=== PATIENT | male | born 1950 | race Caucasian/White ===

== ENCOUNTER 2016-12-02 00:30 | Emergency (ER) | payer MEDICARE ==
[2016-12-02] MEDS ORDERED: CLINDAMYCIN 600MG/50ML PREMIX 600 MG/50 ML BAG IVPB ONE (00:46)
--- NOTE | 2016-12-02 00:52 | Emergency Department Record ---
History of Present Illness - General Chief complaint: Extremity Problem Stated complaint: RIGHT ARM/HAND SWOLLEN Time Seen by Provider: 12/02/16 00:36 Source: Patient, Family Mode of Arrival: Ambulatory Limitations: No limitations - History of Present Illness Initial comments: 66 yo male presents with right arm redness, swelling, and pain. He initially injured the right upper arm on Sunday. He his his elbow against a metal post. On Sunday he developed warmth and redness. He states he was seen at the [facility] where XRays and CT scan were performed. He started oral antibiotics at that time. Over the last day he has developed increased warmth, redness, pain and swelling of the entire RUE. No fever. PCP is Dr Fay through the [facility]. MD Complaint: Extremity pain, Extremity swelling, Joint pain, Joint swelling -: Days(s) (3) Location: Right -: Yes Arthralgia, Yes Myalgia Radiation: Proximal, Distal Quality: Aching Consistency: Constant Improves with: Nothing Worsens with: Weight bearing Associated Symptoms: Denies other symptoms - Related Data Home Medications Medication Instructions Recorded Confirmed Last Taken Hydrochlorothiazide [Hctz 25Mg] 25 mg PO DAILY 12/04/14 12/02/16 Unknown Hydrocodone/Acetaminophen [[place] 1 tab PO Q8H PRN 12/04/14 12/02/16 Unknown 5mg/325mg] Lisinopril [Zestril] 5 mg PO DAILY 12/04/14 12/02/16 Unknown Meloxicam [Mobic] 15 mg PO DAILY 12/04/14 12/02/16 Unknown Omeprazole [Prilosec] 20 mg PO DAILY 12/04/14 12/02/16 Unknown Oxybutynin Chloride [Oxybutynin 5 mg PO BID 12/04/14 12/02/16 Unknown Chloride ER] Simvastatin [Zocor] 20 mg PO DAILY 12/04/14 12/02/16 Unknown Tamsulosin HCl [Flomax] 0.4 mg PO DAILY 12/04/14 12/02/16 Unknown Clindamycin HCl [Cleocin HCl] 300 mg PO Q6H 12/02/16 12/02/16 Unknown Escitalopram (Uknown Dose) 12/02/16 Unknown Allergies Allergy/AdvReac Type Severity Reaction Status Date / Time NO KNOWN DRUG ALLERGY Allergy PT UNSURE Uncoded 05/24/14 11:07 OF REACTION Review of Systems Constitutional: Denies: Chills, Fever, Malaise, Weakness Eyes: Denies: Eye discharge ENT: Denies: Congestion, Throat pain Respiratory: Denies: Cough, Dyspnea, Hemoptysis, Stridor, Wheezes Cardiovascular: Denies: Chest pain, Syncope Endocrine: Denies: Fatigue, Polydipsia, Polyuria Gastrointestinal: Denies: Abdominal pain, Diarrhea, Nausea, Vomiting Genitourinary: Denies: Dysuria, Frequency, Hematuria Musculoskeletal: Reports: As per HPI, Arthralgia, Joint swelling Skin: Reports: As per HPI, Change in color, Rash Neurological: Denies: Headache, Numbness, Vertigo, Weakness Psychiatric: Denies: Anxiety Hematological/Lymphatic: Denies: Blood Clots, Easy bleeding, Easy bruising, Swollen glands Past Medical History - SOCIAL HISTORY Smoking Status: Never smoker - RESPIRATORY Hx Respiratory Disorders: No - CARDIOVASCULAR Hx Cardio Disorders: Yes Hx Hypertension: Yes - NEURO Hx Neuro Disorders: No - GI Hx GI Disorders: Yes Hx Reflux: Yes - Hx Genitourinary Disorders: Yes Hx Prostate Problems: Yes - ENDOCRINE Hx Endocrine Disorders: No - MUSCULOSKELETAL Hx Musculoskeletal Disorders: No - PSYCH Hx Psych Problems: No - HEMATOLOGY/ONCOLOGY Hx Hematology/Oncology Disorders: No Physical Exam - General General Appearance: Alert, Oriented x3, Cooperative, No acute distress - Head Head exam: Atraumatic - Eye Eye exam: Normal appearance. negative: Conjunctival injection, Periorbital swelling - ENT ENT exam: Normal exam Ear exam: Normal external inspection Nasal Exam: Normal inspection Mouth exam: Normal external inspection - Neck Neck exam: Normal inspection, Full ROM. negative: Tenderness - Respiratory Respiratory exam: Normal lung sounds bilaterally. negative: Respiratory distress - Cardiovascular Cardiovascular Exam: Regular rate, Normal rhythm, Normal heart sounds Peripheral Pulses: 2+: Radial (R) - GI/Abdominal GI/Abdominal exam: Soft. negative: Tenderness - Rectal Rectal exam: Deferred - exam: Deferred - Extremities Extremities exam: Joint swelling, Normal capillary refill, Tenderness. negative : Normal inspection Image of Full Body: 1 - diffuse swelling of the RUE with some warmth, tender at the posterior elbow , swelling at the bursa, tender, he is swollen from the upper arm the the hand. - Neurological Neurological exam: Alert, Normal gait, Oriented X3, Reflexes normal - Psychiatric Psychiatric exam: Normal affect, Normal mood - Skin Skin exam: Dry, Erythema, Intact, Normal color, Warm. negative: Cyanosis, Diaphoretic, Mottled Course Vital Signs 12/02/16 00:41 Temperature 98.3 F Pulse Rate [ 83 Pulse Ox Probe] Respiratory 18 Rate Blood Pressure 121/67 [Left Arm] Pulse Ox 94 L - Reevaluation(s) Reevaluation #1: The patient was seen with RUE warmth, erythema, swelling. Likely started as a traumatic bursitis now with cellulitis 12/02/16 00:52 Reevaluation #2: The XR was reviewed Degenerative changes with spurring noted. No acute fracture. 12/02/16 01:31 Reevaluation #3: The labs were reviewed WBC count is 12.8 with a CRP of 21. 12/02/16 01:32 12/02/16 01:38 The patient is failed outpatient treatment for celluitis with possible septic olecranon bursitis. He is requesting admission be at the [facility]. He was made aware he will be charged ambulance transfer fees. Additionally, [facility] does not have orthopedics electronics test engineer for consultation of an infected olecranon bursa. 12/02/16 01:45 12/02/16 02:14 The requested clinical information was sent to the [facility] as requested by the intake service. - Consultations Consultation #1: 01:40 The [facility] Transfer line was contacted and request made for transfer. 04:10 The [facility] and [facility] continue to review the information without acceptance by either facility at this time. The patient was updated on the circumstances. [facility] request information again be faxed to them. 04:53 The [facility] intake rep reports the patient was accepted to the [facility] under Dr Mcneal Medical Decision Making - Lab Data Result diagrams: 12/02/16 00:54 12/02/16 00:54 Disposition Disposition: Transfer Clinical Impression: Cellulitis, Bursitis Transfer To: [facility] Reason For Transfer: Patient preference, Accepting Physician: Kathya Time Discussed w/Accepting Physician: 04:51 Condition: (2) Stable Forms: Patient Portal Access Time of Disposition: 04:51 Quality - Quality Measures Quality Measures: N/A - Blood Pressure Screening View Details: Yes Blood Pressure Classification: Pre-Hypertensive BP Reading Systolic Measurement: 120 Diastolic Measurement: 70 Screening for High Blood Pressure: < Pre-Hypertensive BP, F/U Documented > [ G8950] Pre-Hypertensive Follow-up Interventions: Referral to alternative/primary care provider.
[2016-12-02] MEDS ORDERED: MORPHINE SULFATE 5 MG/ML PFS IVP ONE (00:55)
[2016-12-02 01:00] LABS: BASO % 0.3 % (0-6); EOS % 1.3 % (0-6); GRAN % 77.5 % (47-80); HEMATOCRIT 38.7 % (42.0-52.0); HEMOGLOBIN 13.5 gm/dl (14.0-18.0); LYMPH % 12.6 % (16-45); MEAN CELL VOLUME 93.3 fl (81-97); MEAN CORPUSCULAR HEMOGLOBIN 32.5 pg (27-33); MEAN CORPUSCULAR HGB CONC 34.9 g/dl (32-36); MEAN PLATELET VOLUME 9.9 fl (7.4-10.4); MONO % 8.3 % (0-9); PLATELET COUNT 166 K/uL (130-400); RED BLOOD COUNT 4.15 M/uL (4.40-5.70); RED CELL DISTRIBUTION WIDTH 12.6 % (11.5-14.5); WHITE BLOOD COUNT W/O DIFF 12.8 K/uL (4.2-12.2)
[2016-12-02 01:20] LABS: ANION GAP 11.6 (7-16); BLOOD UREA NITROGEN 24 mg/dL (9-20); CARBON DIOXIDE 25.4 mmol/L (22-30); EST GLOMERULAR FILTRATION RATE > 60 ml/min; GLUCOSE,RANDOM 133 mg/dL (70-110)
[2016-12-02 01:30] LABS: C-REACTIVE PROTEIN 21.7 mg/dL (0.0-0.9)
[2016-12-02] MEDS ORDERED: VANCOMYCIN HCL 1,500 MG in 0.9 % SODIUM CHLORIDE 500ML 500 ML IVPB ONE (01:46)
[2016-12-02 02:31] LABS: ERYTHROCYTE SEDIMENTATION RATE 42 mm/hr (0-20)
--- NOTE | 2016-12-04 09:20 | RADIOLOGY REPORT ---
EXAM: RIGHT ELBOW, FOUR VIEWS HISTORY: RIGHT ELBOW INJURY AND PAIN. TECHNIQUE: Four views of the right elbow were obtained. Comparison: None. FINDINGS: No acute fracture or dislocation of the right elbow. Fairly extensive soft tissue swelling superficial to the olecranon process. Moderate enthesophyte formation at the triceps insertion. Hypertrophic change at the medial and lateral epicondyles. Mild to moderate osteoarthritic change of the right elbow. IMPRESSION: 1. NEGATIVE FOR ACUTE FRACTURE OR THE RIGHT ELBOW. 2. MILD TO MODERATE OSTEOARTHRITIC CHANGE AT THE RIGHT ELBOW. 3. TRICEPS ENTHESOPATHY. 4. SOFT TISSUE SWELLING SUPERFICIAL TO THE OLECRANON PROCESS. JOB NUMBER: [id number] MTDD
== END 2016-12-02 05:15 ==
LOC: ER 00:30
DX: L03.113 Cellulitis of right upper limb (principal); M70.21 Olecranon bursitis, right elbow; I10 Essential (primary) hypertension
CPT/HCPCS: 99285 ×2; 96374; 96375; 85025; 85651; 86140; 80048; 73080; J3370; J2270; J7040

== ENCOUNTER 2017-08-02 16:18 | Emergency (ER) | payer MEDICARE ==
--- NOTE | 2017-08-02 16:41 | Emergency Department Record ---
History of Present Illness - General Chief complaint: Weakness Stated complaint: WEAKNESS Time Seen by Provider: 08/02/17 16:31 Source: Patient Mode of Arrival: EMS Limitations: No limitations - History of Present Illness Initial comments: The patient is here due to developing L arm weakness about an hour ago. He was working at [employer] and bent over because of some back stiffness and then he noticed his L arm was weak and felt heavy. He also may have had some very slight slurred speech and was walking leaning to the L. His symptoms have now very much improved and now only has mild L forearm tingling. He feels 90% improved. The patient does have a hx of chronic neck issues but no hx of CVA. MD Complaint: Focal weakness Onset/Timin -: Hour(s) Location: LUE Severity: Mild Improves with: None Worsens with: None Associated Symptoms: Denies other symptoms - Ronel Coma Scale Eye Response: (4) Open spontaneously Motor Response: (6) Obeys commands Verbal Response: (5) Oriented Ronel Total: 15 - Symptoms of Stroke Symptoms of stroke: Dizziness, Unsteady When Walking - Related Data Home Medications Medication Instructions Recorded Confirmed Last Taken Bupropion HCl [Wellbutrin Sr] 150 mg PO BID 08/02/17 08/02/17 08/02/17 Trazodone HCl 50 mg PO QHS 08/02/17 08/02/17 Unknown Allergies Allergy/AdvReac Type Severity Reaction Status Date / Time NO KNOWN DRUG ALLERGY Allergy PT UNSURE Uncoded 08/02/17 16:34 OF REACTION Travel Screening - Travel/Exposure Within Last 30 Days Have you traveled within the last 30 days?: No Review of Systems Constitutional: Denies: Chills, Fever Eyes: Denies: Eye discharge ENT: Denies: Congestion Respiratory: Denies: Cough, Dyspnea Cardiovascular: Denies: Chest pain Endocrine: Denies: Fatigue Gastrointestinal: Denies: Abdominal pain Genitourinary: Denies: Dysuria Musculoskeletal: Denies: Back pain Past Medical History - SOCIAL HISTORY Smoking Status: Never smoker - RESPIRATORY Hx Respiratory Disorders: No - CARDIOVASCULAR Hx Cardio Disorders: Yes Hx Hypertension: Yes - NEURO Hx Neuro Disorders: No - GI Hx GI Disorders: Yes Hx Reflux: Yes - Hx Genitourinary Disorders: Yes Hx Prostate Problems: Yes - ENDOCRINE Hx Endocrine Disorders: No - MUSCULOSKELETAL Hx Musculoskeletal Disorders: No - PSYCH Hx Psych Problems: No - HEMATOLOGY/ONCOLOGY Hx Hematology/Oncology Disorders: No Physical Exam - General General Appearance: Alert, Oriented x3, Cooperative, No acute distress - Head Head exam: Atraumatic, Normocephalic, Normal inspection - Eye Eye exam: Normal appearance, PERRL, EOMI - ENT Throat exam: Normal inspection. negative: Tonsillar erythema, Tonsillar exudate - Neck Neck exam: Normal inspection, Full ROM. negative: Tenderness - Respiratory Respiratory exam: Normal lung sounds bilaterally. negative: Respiratory distress - Cardiovascular Cardiovascular Exam: Regular rate, Normal rhythm, Normal heart sounds - GI/Abdominal GI/Abdominal exam: Soft, Normal bowel sounds. negative: Tenderness - Extremities Extremities exam: Normal inspection, Full ROM, Normal capillary refill. negative: Tenderness - Neurological Neurological exam: Alert, Normal gait, Oriented X3, Reflexes normal, Other (Neg Drift and [place].). negative: Abnormal gait, Altered, Motor sensory deficit ( There is very mild subjective tingling to the L dorsal forearm. Motor is 5/5 upper and lower extremities.) Course Vital Signs 08/02/17 16:28 Temperature 98.4 F Pulse Rate 72 Respiratory 18 Rate Blood Pressure 149/92 Pulse Ox 97 - Reevaluation(s) Reevaluation #1: The patient is doing very well at this time. His L arm is no longer weak but still feels mild tingling. There is no difficulty swallowing or with his speech. The patient's head CT is WNL's but since his symptoms are very much improved he is clearly not a TPA candidate. We will contact the stroke service at [facility] and transfer the patient for a full workup. 08/02/17 17:36 Reevaluation #2: The patient is resting comfortably at this time. Due to the nature of his complaints I did discuss the case with Dr. Sim from the stroke team at [facility]. She would like the patient to go to the ER for further treatment. I then did discuss the case with Dr. Escobedo and she did accept the patient in an ER to ER transfer. 08/02/17 17:51 Medical Decision Making - Data Complexity MDM Data: EKG Ordered and/or Reviewed - Lab Data Result diagrams: 08/02/17 16:05 08/02/17 16:38 - EKG Data -: EKG Interpreted by Me EKG: No Acute Changes Disposition Disposition: Transfer Clinical Impression: Left arm weakness Disposition: Acute Care Hospital Transfer Transfer To: [facility] Reason For Transfer: Neurology Accepting Physician: Gregg Time Discussed w/Accepting Physician: 17:53 Condition: (2) Stable Forms: Patient Portal Access Time of Disposition: 17:53 Quality - Quality Measures Quality Measures: N/A - Blood Pressure Screening View Details: Yes Does Patient Have Any of the Following: Active Dx of HTN Blood Pressure Classification: Hypertensive Reading Systolic Measurement: 149 Diastolic Measurement: 92 Screening for High Blood Pressure: Patient Exclusion, Hx of HTN [G9744]
[2017-08-02 16:54] LABS: BASO % 0.4 % (0-6); EOS % 4.9 % (0-6); GRAN % 47.2 % (47-80); HEMATOCRIT 44.7 % (42.0-52.0); HEMOGLOBIN 15.2 gm/dl (14.0-18.0); LYMPH % 37.8 % (16-45); MEAN CELL VOLUME 93.7 fl (81-97); MEAN CORPUSCULAR HEMOGLOBIN 31.9 pg (27-33); MEAN PLATELET VOLUME 9.8 fl (7.4-10.4); MONO % 9.7 % (0-9); PLATELET COUNT 195 K/uL (130-400); RED BLOOD COUNT 4.77 M/uL (4.40-5.70); RED CELL DISTRIBUTION WIDTH 12.9 % (11.5-14.5)
[2017-08-02 17:06] LABS: BLOOD UREA NITROGEN 23 mg/dL (8-23); CREATININE 0.9 mg/dL (0.7-1.2); EST GLOMERULAR FILTRATION RATE > 60 mL/min
[2017-08-02 17:07] LABS: TOTAL PROTEIN 7.7 g/dL (6.6-8.7)
[2017-08-02 17:09] LABS: GLUCOSE,RANDOM 88 mg/dL (74-109)
[2017-08-02 17:12] LABS: ALB/GLOB RATIO 1.3 (1.1-1.8); ALBUMIN 4.4 g/dL (4.0-5.0); ALKALINE PHOSPHATASE 68 U/L (40-129); ALT/SGPT 22 U/L (<41); AST/SGOT 31 U/L (10.0-50.0); CREATINE PHOSPHOKINASE 505 U/L (39-308)
[2017-08-02 17:15] LABS: CKMB 9.2 ng/mL (<6.73)
[2017-08-02] MEDS ORDERED: ASPIRIN 325 MG TABLET PO ONE (17:31)
--- NOTE | 2017-08-04 18:17 | CT SCAN REPORT ---
EXAM: CT SCAN HEAD WO CONTRAST HISTORY: VERTIGO. TECHNIQUE: CT brain without contrast. COMPARISON: Prior from 08/17/09. FINDINGS: The globes are intact. Mucosal thickening of the maxillary sinuses and ethmoid air cells. No displaced or depressed skull fracture. There is no intra or extraaxial hemorrhage. CT limited for the evaluation of acute infarct. There is no CT evidence for large or territorial acute infarct. There is no mass or midline shift. The ventricles are symmetric. The ruffin-white matter differentiation is preserved. IMPRESSION: MUCOSAL THICKENING OF THE MAXILLARY SINUSES AND ETHMOID AIR CELLS. REMAINDER IS UNREMARKABLE. J[facility]BER: [id number] [facility]
== END 2017-08-02 18:20 | disposition short-term general hospital (02) ==
LOC: ER 16:18
DX: R29.898 Other symptoms and signs involving the musculoskeletal system (principal); R42 Dizziness and giddiness; R20.2 Paresthesia of skin; R26.81 Unsteadiness on feet; I10 Essential (primary) hypertension
CPT/HCPCS: 70450; 80053; 82550; 82553; 84484; 85025; 93005; 93010; 99284; 99285

== ENCOUNTER 2018-07-11 15:24 | Emergency (ER) | payer MEDICARE ==
[2018-07-11] MEDS ORDERED: ACETAMINOPHEN 325 MG TAB PO ONE (15:55)
--- NOTE | 2018-07-11 16:00 | Emergency Department Record ---
History of Present Illness - General Chief complaint: Head Injury Stated complaint: FALL INJURY Time Seen by Provider: 07/11/18 15:52 Source: Patient, Family Mode of Arrival: Ambulatory Limitations: No limitations - History of Present Illness Initial comments: The patient slipped on the ice about 2 hours ago and hit the back of his head on cement. He had no LOC but was dazed and has had a worsening CLARKE since the fall. The patient has had mild neck pain also and has had neck surgery in the past. The patient denies any arm or leg numbness or weakness and has been ambulating normally since the fall. The patient has had no nausea, vomiting, or confusion but also is having mild L shoulder and hip pain. MD Complaint: Head injury Onset/Timin -: Hour(s) Location: Parietal Loss of Consciousness: Yes Place: Home Consistency: Constant - Related Data Home Medications Medication Instructions Recorded Confirmed Last Taken Aspirin [Aspir-Low] 81 mg PO DAILY 07/11/18 07/11/18 07/11/18 Allergies/Adverse reactions: Allergies Allergy/AdvReac Type Severity Reaction Status Date / Time oxycodone [From OxyContin] AdvReac HYPERSENSIT Verified 07/11/18 15:45 IVITY Travel Screening - Travel/Exposure Within Last 30 Days Have you traveled within the last 30 days?: No - Travel/Exposure Within Last Year Have you traveled outside the [place] in the last year?: No - Additonal Travel Details Have you been exposed to anyone with a communicable illness?: No - Travel Symptoms Symptom Screening: None Review of Systems Constitutional: Denies: Chills, Fever Eyes: Denies: Eye discharge ENT: Denies: Congestion Respiratory: Denies: Cough, Dyspnea Cardiovascular: Denies: Arrhythmia Endocrine: Denies: Fatigue Gastrointestinal: Denies: Nausea Genitourinary: Denies: Hematuria Musculoskeletal: Denies: Arthralgia Skin: Denies: Bruising Past Medical History - SOCIAL HISTORY Smoking Status: Never smoker Alcohol Use: None Drug Use: None - RESPIRATORY Hx Respiratory Disorders: No - CARDIOVASCULAR Hx Cardio Disorders: Yes Hx Hypertension: Yes - NEURO Hx Neuro Disorders: No - GI Hx GI Disorders: Yes Hx Reflux: Yes - Hx Genitourinary Disorders: Yes Hx Prostate Problems: Yes - ENDOCRINE Hx Endocrine Disorders: No - MUSCULOSKELETAL Hx Musculoskeletal Disorders: No - PSYCH Hx Psych Problems: No Hx Anxiety: Yes Hx Depression: Yes Comment:: PTSD - HEMATOLOGY/ONCOLOGY Hx Hematology/Oncology Disorders: No Family Medical History Any Significant Family History?: No Hx Dementia: Father Hx Heart Disease: Brother/Sister Hx Stroke: Mother Physical Exam - General General Appearance: Alert, Oriented x3, Cooperative, No acute distress - Head Head exam: Normocephalic. negative: Atraumatic, Normal inspection (There is a contusion to the L posterior parietal area.) - Eye Eye exam: Normal appearance, PERRL, Conjunctival injection - Neck Neck exam: Normal inspection, Full ROM, Tenderness (There is very mild Cspine tenderness.) - Respiratory Respiratory exam: Normal lung sounds bilaterally. negative: Chest wall tenderness, Respiratory distress - Cardiovascular Cardiovascular Exam: Regular rate, Normal rhythm, Normal heart sounds - Extremities Extremities exam: Normal inspection, Full ROM, Tenderness (There is mild L shoulder tenderness but full ROM. The L hip is also mildly tender but with no bruising. He is up walking with no limping to the L leg.) - Back Back exam: Denies: Vertebral tenderness - Neurological Neurological exam: Alert, Normal gait, Oriented X3. negative: Abnormal gait, Altered, Motor sensory deficit Course Vital Signs 07/11/18 15:35 Temperature 98.4 F Pulse Rate 78 Respiratory 20 Rate Blood Pressure 154/89 Pulse Ox 98 - Reevaluation(s) Reevaluation #1: The patient is doing better. I did discuss the neg xrays and the need to rest today and tomorrow. He is to see his PCP next week if not better. 07/11/18 17:09 Medical Decision Making - Data Complexity MDM Data: X-Ray Ordered and/or Reviewed - Radiology Data Radiology results: Report reviewed (Head and Cervical CT: Neg for any acute findings. L shoulder: neg for acute findings.) Disposition Disposition: Discharge Clinical Impression: Contusion of head Qualifiers: Encounter type: initial encounter Contusion of head detail: scalp Qualified Code(s): S00.03XA - Contusion of scalp, initial encounter Disposition: Home, Self-Care Condition: (2) Stable Instructions: Head Injury (ED) Additional Instructions: Please continue your home pain medicines and rest. Please see your family doctor next week if not better. Return to the ER for any worsening symptoms or problems, worsening head pain, vomiting or confusion. Forms: Patient Portal Access Time of Disposition: 17:11 Quality - Quality Measures Quality Measures: Blunt Head Trauma (>2yr) - Blunt Head Trauma - Adult Quality Measure: Measure #415: Utilization of CT for Minor Blunt Head Trauma ICD10 Codes Entered: Yes View Details: Yes Was CT ordered: Yes Does Patient Have Any of the Following: Taking Antiplatelet Med [place] Score: Please complete Ronel Coma Scale above Utilization of CT for Minor Blunt Head Trauma: Patient Excluded [G9531] - Blood Pressure Screening View Details: Yes Does Patient Have Any of the Following: No Blood Pressure Classification: Pre-Hypertensive BP Reading Systolic Measurement: 154 Diastolic Measurement: 89 Screening for High Blood Pressure: < Pre-Hypertensive BP, F/U Documented > [ G8950] Pre-Hypertensive Follow-up Interventions: Referral to alternative/primary care provider.
--- NOTE | 2018-07-15 12:53 | CT SCAN REPORT ---
EXAM: NONCONTRAST CT OF THE CERVICAL SPINE HISTORY: FALL, PAIN. TECHNIQUE: Noncontrast CT of the cervical spine was done. Comparison: None. FINDINGS: No acute fracture is seen. No evidence of dislocation. Previous surgery at C3 through C5 levels with posterior spinal instrumentation and surgical decompression. Bridging ossification is noted between these vertebral levels. Disk/end plate degeneration noted at C5-C6 and C6-C7 with posterior end plate osteophytes and bulging disk material which encroaches on the central spinal canal. Bilateral neural foraminal narrowing at these levels as well. The paravertebral soft tissues appear within normal limits. No significant abnormalities in the visualized upper lungs. IMPRESSION: 1. NO ACUTE CERVICAL SPINE FRACTURE OR DISLOCATION IS SEEN. 2. MULTILEVEL CERVICAL SPINE DEGENERATIVE FINDINGS. STATUS POST POSTERIOR SPINAL FUSION. [facility]: [id number] [facility]
--- NOTE | 2018-07-15 13:10 | CT SCAN REPORT ---
EXAM: NONCONTRAST CT OF THE BRAIN HISTORY: FALL, LEFT PARIETAL REGION HEAD INJURY. TECHNIQUE: Noncontrast CT of the brain was obtained. Comparison: CT of the brain 08/02/17. FINDINGS: No midline shift, mass effect, or abnormal intra or extraaxial fluid collection. No cerebral edema, focal mass or intracranial hemorrhage is detected. The ventricles appear similar in from previous examination. No displaced calvarial fracture is seen. Mild bilateral ethmoid air cell and maxillary sinus mucosal thickening, as seen previously. IMPRESSION: 1. NO ACUTE INTRACRANIAL FINDINGS. 2. MILD CHRONIC SINUS DISEASE, ABOVE. J[facility]BER: [id number] [facility]
--- NOTE | 2018-07-15 13:11 | RADIOLOGY REPORT ---
EXAM: LEFT SHOULDER HISTORY: FALL, LEFT SHOULDER PAIN, LIMITED RANGE OF MOTION. TECHNIQUE: Three views of the left shoulder were obtained. Comparison: None. FINDINGS: No acute fracture is seen. No dislocation. Mild degenerative changes of the glenohumeral and acromioclavicular joint. IMPRESSION: NO ACUTE FINDINGS. JOB NUMBER: [id number] MTDD
== END 2018-07-11 17:21 | disposition home or self-care (01) ==
LOC: ER 15:24
DX: S00.03XA Contusion of scalp, initial encounter (principal); M25.552 Pain in left hip; M25.512 Pain in left shoulder; R51 Headache; M54.2 Cervicalgia; W00.0XXA Fall on same level due to ice and snow, initial encounter; Y92.009 Unspecified place in unspecified non-institutional (private) residence as the place of occurrence of the external cause; I10 Essential (primary) hypertension
CPT/HCPCS: 70450; 72125; 99283; 99284

== ENCOUNTER 2018-11-09 13:53 | Emergency (ER) | payer MEDICARE ==
[2018-11-09] MEDS ORDERED: DOXYCYCLINE HYCLATE 100 MG CAPSULE PO ONE (15:03)
--- NOTE | 2018-11-09 15:32 | Emergency Department Record ---
History of Present Illness - General Chief complaint: Bite Insect/other Stated complaint: TICK IN NECK BY HAIR LINE Time Seen by Provider: 11/09/18 15:03 Source: Patient Mode of Arrival: Ambulatory Limitations: No limitations - History of Present Illness Initial comments: pt came in because he has had a tick on the back of his neck for 2 wks. complaint: Insect bite/sting Onset/Timin -: Week(s) Location: Neck Consistency: Constant Improves with: None Worsens with: None Context: Other Associated symptoms: Denies other symptoms Treatments Prior to Arrival: Other - Related Data Allergies Allergy/AdvReac Type Severity Reaction Status Date / Time oxycodone [From OxyContin] AdvReac HYPERSENSIT Verified 07/11/18 15:45 IVITY Travel Screening - Travel/Exposure Within Last 30 Days Have you traveled within the last 30 days?: No Review of Systems Reviewed: No additional complaints except as noted below Constitutional: Reports: As per HPI. Denies: Chills, Fever, Malaise, Night sweats, Weakness, Weight change Eyes: Reports: As per HPI. Denies: Eye discharge, Eye pain, Photophobia, Vision change ENT: Reports: As per HPI. Denies: Congestion, Dental pain, Ear pain, Epistaxis, Hearing loss, Throat pain Respiratory: Reports: As per HPI. Denies: Cough, Dyspnea, Hemoptysis, Stridor, Wheezes Cardiovascular: Reports: As per HPI. Denies: Arrhythmia, Chest pain, Dyspnea on exertion, Edema, Murmurs, Orthopnea, Palpitations, Paroxysmal nocturnal dyspnea, Rheumatic Fever, Syncope Endocrine: Reports: As per HPI. Denies: Fatigue, Heat or cold intolerance, Polydipsia, Polyuria Gastrointestinal: Reports: As per HPI. Denies: Abdominal pain, Constipation, Diarrhea, Hematemesis, Hematochezia, Melena, Nausea, Vomiting Genitourinary: Reports: As per HPI. Denies: Dysuria, Frequency, Hematuria, Incontinence, Retention, Testicular pain, Testicular mass, Urgency Musculoskeletal: Reports: As per HPI. Denies: Arthralgia, Back pain, Gout, Joint swelling, Myalgia, Neck pain Skin: Reports: As per HPI. Denies: Bruising, Change in color, Change in hair/nails, Lesions, Pruritus, Rash Neurological: Reports: As per HPI. Denies: Abnormal gait, Confusion, Headache, Numbness, Paresthesias, Seizure, Tingling, Tremors, Vertigo, Weakness Psychiatric: Reports: As per HPI. Denies: Anxiety, Auditory hallucinations, Depression, Homicidal thoughts, Suicidal thoughts, Visual hallucinations Hematological/Lymphatic: Reports: As per HPI. Denies: Anemia, Blood Clots, Easy bleeding, Easy bruising, Swollen glands Past Medical History - SOCIAL HISTORY Smoking Status: Never smoker - RESPIRATORY Hx Respiratory Disorders: No - CARDIOVASCULAR Hx Cardio Disorders: Yes Hx Hypertension: Yes - NEURO Hx Neuro Disorders: No - GI Hx GI Disorders: Yes Hx Reflux: Yes - Hx Genitourinary Disorders: Yes Hx Prostate Problems: Yes - ENDOCRINE Hx Endocrine Disorders: No - MUSCULOSKELETAL Hx Musculoskeletal Disorders: No - PSYCH Hx Psych Problems: No Hx Anxiety: Yes Hx Depression: Yes Comment:: PTSD - HEMATOLOGY/ONCOLOGY Hx Hematology/Oncology Disorders: No Family Medical History Any Significant Family History?: Yes Hx Dementia: Father Hx Heart Disease: Brother/Sister Hx Stroke: Mother Physical Exam - General General Appearance: Alert, Oriented x3, Cooperative, Mild distress - Head Head exam: Normal inspection - Eye Eye exam: Normal appearance, PERRL, EOMI Pupils: Normal accommodation - ENT ENT exam: Normal exam, Mucous membranes moist, Normal external ear exam, Normal orophraynx Ear exam: Normal external inspection. negative: External canal tenderness Nasal Exam: Normal inspection. negative: Discharge, Sinus tenderness Mouth exam: Normal external inspection, Tongue normal Teeth exam: Normal inspection. negative: Dental caries Throat exam: Normal inspection. negative: Tonsillar erythema, Tonsillar exudate - Neck Neck exam: Full ROM, Other (pt has a tick on the back of his neck that is engorged). negative: Tenderness - Respiratory Respiratory exam: Normal lung sounds bilaterally. negative: Respiratory distress - Cardiovascular Cardiovascular Exam: Regular rate, Normal rhythm, Normal heart sounds - GI/Abdominal GI/Abdominal exam: Soft, Normal bowel sounds. negative: Tenderness - Rectal Rectal exam: Deferred - exam: Deferred - Extremities Extremities exam: Normal inspection, Full ROM, Normal capillary refill. negative: Tenderness - Back Back exam: Reports: Normal inspection, Full ROM. Denies: Muscle spasm, Rash noted, Tenderness - Neurological Neurological exam: Alert, CN II-XII intact, Normal gait, Oriented X3 - Psychiatric Psychiatric exam: Normal affect, Normal mood - Skin Skin exam: Dry, Intact, Normal color, Warm Course Vital Signs 11/09/18 14:37 Temperature 98.3 F Pulse Rate 71 Respiratory 20 Rate Blood Pressure 127/83 Pulse Ox 96 - Reevaluation(s) Reevaluation #1: 11/09/18 15:30 tick was gently removed in its entirety w tweezers. it was engorged Reevaluation #2: 11/09/18 15:33 tick was sent for ID Disposition Disposition: Discharge Clinical Impression: Tick bite of neck Qualifiers: Encounter type: initial encounter Qualified Code(s): S10.96XA - Insect bite of unspecified part of neck, initial encounter; W57.XXXA - Bitten or stung by nonvenomous insect and other nonvenomous arthropods, initial encounter Disposition: Home, Self-Care Condition: (1) Good Instructions: Insect Bite or Sting (ED) Additional Instructions: follow up with family doctor. return sooner if worse Quality - Quality Measures Quality Measures: N/A - Blood Pressure Screening Does Patient Have Any of the Following: No Blood Pressure Classification: Pre-Hypertensive BP Reading Systolic Measurement: 127 Diastolic Measurement: 83 Screening for High Blood Pressure: < Pre-Hypertensive BP, F/U Documented > [G8950] Pre-Hypertensive Follow-up Interventions: Follow-up with rescreen every year.
== END 2018-11-09 15:47 | disposition home or self-care (01) ==
LOC: ER 13:53
DX: S10.86XA Insect bite of other specified part of neck, initial encounter (principal); W57.XXXA Bitten or stung by nonvenomous insect and other nonvenomous arthropods, initial encounter; I10 Essential (primary) hypertension
CPT/HCPCS: 99282

== ENCOUNTER 2018-12-19 20:30 | Emergency (ER) | payer MEDICARE ==
[2018-12-19 20:56] LABS: ABSOLUTE NEUTROPHIL COUNT 4.49; BASO % 0.4 % (0-6); EOS % 4.7 % (0-6); GRAN % 56.9 % (47-80); HEMATOCRIT 43.9 % (42.0-52.0); HEMOGLOBIN 15.2 gm/dl (14.0-18.0); LYMPH % 28.6 % (16-45); MEAN CELL VOLUME 92.4 fl (81-97); MEAN CORPUSCULAR HGB CONC 34.6 g/dl (32-36); MEAN PLATELET VOLUME 9.7 fl (7.4-10.4); MONO % 9.4 % (0-9); PLATELET COUNT 204 K/uL (130-400); RED BLOOD COUNT 4.75 M/uL (4.40-5.70); RED CELL DISTRIBUTION WIDTH 12.7 % (11.5-14.5); WHITE BLOOD COUNT W/O DIFF 7.9 K/uL (4.2-12.2)
[2018-12-19 21:03] LABS: BLOOD UREA NITROGEN 15 mg/dL (8-23); CREATININE 0.8 mg/dL (0.7-1.2); EST GLOMERULAR FILTRATION RATE > 60 mL/min
[2018-12-19 21:04] LABS: TOTAL PROTEIN 7.3 g/dL (6.6-8.7)
[2018-12-19 21:06] LABS: GLUCOSE,RANDOM 97 mg/dL (74-109)
[2018-12-19 21:08] LABS: ALB/GLOB RATIO 1.6 (1.1-1.8); ALBUMIN 4.5 g/dL (4.0-5.0); ALT/SGPT 36 U/L (<41); AST/SGOT 77 U/L (10.0-50.0)
[2018-12-19 21:09] LABS: ACETAMINOPHEN < 5.0 ug/mL (10.0-30.0); ALKALINE PHOSPHATASE 72 U/L (40-129)
[2018-12-19 21:10] LABS: SALICYLATE < 0.3 mg/dL (2.8-20)
[2018-12-19 21:19] LABS: THYROID STIMULATING HORMONE 2.14 uIU/mL (0.270-4.20)
[2018-12-19 21:44] LABS: AMPHETAMINE SCREEN URINE NOT DETECTED; BARBITURATE SCREEN URINE NOT DETECTED; BENZODIAZEPINE SCREEN URINE NOT DETECTED; COCAINE SCREEN URINE NOT DETECTED; METHADONE SCREEN URINE NOT DETECTED; METHAMPHETAMINE SCREEN NOT DETECTED; OPIATE SCREEN URINE NOT DETECTED; OXYCODONE SCREEN URINE NOT DETECTED; PHENCYCLIDINE SCREEN URINE NOT DETECTED; PROPOXYPHENE SCREEN URINE NOT DETECTED; THC SCREEN URINE NOT DETECTED; TRICYCLIC ANTIDEPRESSANT SCRN DETECTED
--- NOTE | 2018-12-19 21:47 | Emergency Department Record ---
History of Present Illness - General Chief Complaint: Crisis Evaluation Stated Complaint: MENTAL EVAL Time Seen by Provider: 12/19/18 20:35 Source: Patient, Family, EMS Mode of Arrival: EMS Limitations: Other (Patient is non-compliant with history/examination) - History of Present Illness Initial Comments: 68 yo male presents to ED for evaluation of "acting odd" per patient's daughter. Per daughter, the patient has a long-standing history of depression which recent worsened. Patient fell 5 days ago without injury, reports at that time that he "saw Ata" and that he was "healed". Daughter reports that the patient has been "talking to the ceiling", also talking to pictures on the wall while naked. Daughter reports that the patient told his family that he wanted to "blow his head off", then stated that he didn't mean it and went to bed. 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 Patient was seen at [facility] facility last night, was started on Seroquel and told to return for hospitalization if his symptoms worsen. MD Complaint: Feels depressed, Suicidal ideation Onset/Timin -: Hour(s) Associated Psychiatric Symptoms: Auditory hallucinations, Delusions, Suicidal ideation, Visual hallucinations History of same: No Improves With: None Worsens With: Medication Context: New medication(s) Associated Symptoms: Confusion Treatments Prior to Arrival: None - Ronel Coma Scale Eye Response: (4) Open spontaneously Motor Response: (6) Obeys commands Verbal Response: (4) Confused conversation [place] Total: 14 - Related Data Home Medications Medication Instructions Recorded Confirmed Last Taken Cholecalciferol (Vitamin D3) 1,000 unit PO DAILY 12/19/18 12/19/18 Unknown [Vitamin D3] Cyclobenzaprine HCl 10 mg PO BID PRN 12/19/18 12/19/18 Unknown Hydrocodone/Acetaminophen 1 each PO TID PRN 12/19/18 12/19/18 Unknown [Hydrocodone-Acetamin 5-325 mg] Lamotrigine [Lamictal] 75 mg PO BID 12/19/18 12/19/18 Unknown Multivitamin [Multi-Vitamin Daily] 1 each PO DAILY 12/19/18 12/19/18 Unknown Quetiapine Fumarate [Seroquel] 100 mg PO QHS 12/19/18 12/19/18 Unknown Allergies Allergy/AdvReac Type Severity Reaction Status Date / Time oxycodone [From OxyContin] AdvReac HYPERSENSIT Verified 07/11/18 15:45 IVITY Review of Systems ROS unobtainable: Other (Patient is non-compliant with history) Neurological: Reports: Confusion Psychiatric: Reports: Auditory hallucinations, Depression, Suicidal thoughts Past Medical History - SOCIAL HISTORY Smoking Status: Never smoker Alcohol Use: None Drug Use: None - RESPIRATORY Hx Respiratory Disorders: No - CARDIOVASCULAR Hx Cardio Disorders: Yes Hx Hypertension: Yes - NEURO Hx Neuro Disorders: No - GI Hx GI Disorders: Yes Hx Reflux: Yes - Hx Genitourinary Disorders: Yes Hx Prostate Problems: Yes - ENDOCRINE Hx Endocrine Disorders: No - MUSCULOSKELETAL Hx Musculoskeletal Disorders: No - PSYCH Hx Psych Problems: Yes Hx Anxiety: Yes Hx Depression: Yes Comment:: PTSD - HEMATOLOGY/ONCOLOGY Hx Hematology/Oncology Disorders: No Family Medical History Any Significant Family History?: Yes Hx Dementia: Father Hx Heart Disease: Brother/Sister Hx Stroke: Mother Physical Exam - General General Appearance: Alert, Cooperative, Other (Patient believes it is the end of December,.) Limitations: Altered mental status - Head Head exam: Atraumatic, Normocephalic, Normal inspection Head exam detail: negative: Abrasion, Contusion, Byrd's sign, General tenderness, Hematoma, Laceration - Eye Eye exam: Normal appearance. negative: Conjunctival injection, Periorbital swelling, Periorbital tenderness, Scleral icterus - ENT Ear exam: negative: Auricular hematoma, Auricular trauma Nasal Exam: negative: Active bleeding, Discharge, Dried blood, Foreign body Mouth exam: negative: Drooling, Laceration, Muffled voice, Tongue elevation - Neck Neck exam: Normal inspection. negative: Meningismus, Tenderness - Respiratory Respiratory exam: Normal lung sounds bilaterally. negative: Rales, Respiratory distress, Rhonchi, Stridor - Cardiovascular Cardiovascular Exam: Regular rate, Normal rhythm, Normal heart sounds - GI/Abdominal GI/Abdominal exam: Soft. negative: Rebound, Rigid, Tenderness - Rectal Rectal exam: Deferred - exam: Deferred - Extremities Extremities exam: Normal inspection. negative: Pedal edema, Tenderness - Back Back exam: Denies: CVA tenderness (R), CVA tenderness (L) - Neurological Neurological exam: Alert, Normal gait. negative: Motor sensory deficit - Psychiatric Psychiatric exam: Depressed - Skin Skin exam: Normal color. negative: Abrasion Type of lesion: negative: abrasion Course Vital Signs 12/19/18 20:41 Temperature 98.5 F Pulse Rate [ 83 Pulse Ox Probe] Respiratory 20 Rate Blood Pressure 181/101 [Left Arm] Pulse Ox 98 - Reevaluation(s) Reevaluation #1: 12/19/18 21:45 Petition and Certification were completed. Laboratory studies were reviewed and appear grossly unremarkable for an acute process. CT Brain: Small vessel ischemic changes No acute intra-cranial process. Will initiate placement for further psychiatric placement a this time. Reevaluation #2: 12/19/18 22:02 Patient up to the bathroom without difficulty, disrobing in the ED (paper scrubs removed, only in socks/underpants) at this time. Reevaluation #3: 12/19/18 22:59 Patient was laying on the floor, attempted to crawl from Room #5 after asking numerous times to sit up. Patient scratches his right cheek with his nails, posterior scalp with his nails. No other injury noted on examination, no fall/head/cervical spine injury noted. (3) staff members assisted to lift the patient back into bed with patient resisting, Zyprexa IM ordered to be given. Patient's daughter and son-in-law at the bedside for evaluation. Will hold on physical restraints at this time unless patient attempts to leave or becomes more agitated/violent. Reevaluation #4: 12/19/18 23:22 All records faxed to [facility], requesting EKG: NSR 61 Normal axis, normal intervals Artifact V3, no acute ST-T wave changes present. Reevaluation #5: 12/19/18 23:36 Patient has been accepted to [facility] for psychiatric evaluation, appears stable for transfer at this time. Medical Decision Making - Lab Data Result diagrams: 12/19/18 20:45 12/19/18 20:45 Lab Results 12/19/18 12/19/18 12/19/18 Range/Units 20:45 20:45 21:43 WBC 7.9 (4.2-12.2) K/uL RBC 4.75 (4.40-5.70) M/uL Hgb 15.2 (14.0-18.0) gm/dl Hct 43.9 (42.0-52.0) % MCV 92.4 (81-97) fl MCH 32.0 (27-33) pg MCHC 34.6 (32-36) g/dl RDW 12.7 (11.5-14.5) % Plt Count 204 (130-400) K/uL MPV 9.7 (7.4-10.4) fl Gran % 56.9 (47-80) % Lymphocytes % 28.6 (16-45) % Monocytes % 9.4 H (0-9) % Eosinophils % 4.7 (0-6) % Basophils % 0.4 (0-6) % Absolute Neutrophils 4.49 Sodium 137 (136-145) mmol/L Potassium 3.5 (3.4-4.5) mmol/L Chloride 98 (98-107) mmol/L Carbon Dioxide 29.0 (22-29) mmol/L Anion Gap 10.0 (7-16) BUN 15 (8-23) mg/dL Creatinine 0.8 (0.7-1.2) mg/dL Estimated GFR > 60 mL/min Random Glucose 97 (74-109) mg/dL Calcium 9.1 (8.8-10.2) mg/dL Total Bilirubin 0.30 (0.2-1.0) mg/dL AST 77 H (10.0-50.0) U/L ALT 36 (<41) U/L Alkaline Phosphatase 72 (40-129) U/L Total Protein 7.3 (6.6-8.7) g/dL Albumin 4.5 (4.0-5.0) g/dL Globulin 2.8 (1.4-4.8) gm/dL Albumin/Globulin Ratio 1.6 (1.1-1.8) TSH 2.14 (0.270-4.20) uIU/mL Salicylates < 0.3 L (2.8-20) mg/dL Urine Opiates Screen Not detected Ur Oxycodone Screen Not detected Urine Methadone Screen Not detected Ur Propoxyphene Screen Not detected Acetaminophen < 5.0 L (10.0-30.0) ug/mL Ur Barbituates Screen Not detected Ur Tricyclics Screen Detected Ur Phencyclidine Scrn Not detected Ur Amphetamine Screen Not detected U Methamphetamines Scrn Not detected U Benzodiazepines Scrn Not detected Urine Cocaine Screen Not detected Urine Cannabis Screen Not detected Ethyl Alcohol 0.000 (0-0.010) g/dL Disposition Disposition: Transfer Clinical Impression: Major depression with psychotic features Disposition: Psychiatric Hospital Transfer To: [facility] Reason For Transfer: Psychiatric evaluation Accepting Physician: Alberto Time Discussed w/Accepting Physician: 23:37 Condition: (2) Stable Forms: Patient Portal Access Time of Disposition: 23:37 Quality - Quality Measures Quality Measures: N/A - Blood Pressure Screening Does Patient Have Any of the Following: No Blood Pressure Classification: Hypertensive Reading Systolic Measurement: 166 Diastolic Measurement: 101 Screening for High Blood Pressure: < First Hypertensive BP, F/U Documented > [G8950] First Hypertensive Follow-up Interventions: Referral to alternative/primary care provider.
[2018-12-19] MEDS ORDERED: OLANZAPINE 10 MG VIAL IM ONE (22:58)
--- NOTE | 2018-12-22 20:24 | CT SCAN REPORT ---
EXAM: CT SCAN HEAD WO CONTRAST HISTORY: MAKING ODD STATEMENTS, VISUAL AND AUDITORY HALLUCINATIONS, MENTAL EVALUATION. TECHNIQUE: Standard CT imaging of the head without intravenous contrast. COMPARISON: 07/11/18. FINDINGS: The ventricles, sulci, and basal cisterns are normal for patient's age. No significant mass effect or midline shift. No intracranial hemorrhage or extraaxial fluid collection is identified. Patchy hypodensity in the white matter is nonspecific but likely chronic small vessel ischemic changes. The paranasal sinuses and mastoid air cells are unremarkable. IMPRESSION: NEGATIVE NONCONTRAST CT OF THE HEAD FOR ACUTE INTRACRANIAL ABNORMALITY. JOB NUMBER: [id number] [facility]
== END 2018-12-20 00:01 ==
LOC: ER 20:30
DX: F32.3 Major depressive disorder, single episode, severe with psychotic features (principal); I10 Essential (primary) hypertension
CPT/HCPCS: 70450; 80053; 80305; 80320; 80329; 84443; 85025; 93005; 93010; 96372; 99285